=== PATIENT | female | born 1995 | race African-American/Black ===

== ENCOUNTER 2016-08-19 22:40 | Emergency (ER) | payer MEDICAID, OTHER ==
[~2016-08-19] VITALS: Ht 162.6 cm; Wt 61.0 kg
[2016-08-19 22:46] VITALS: BP 126/93; PULSE 81; RESP 16; TEMP 98.1; O2SAT 99
[2016-08-19] MEDS ORDERED: SODIUM CHLOR 0.9% 1000 ML INJ 1,000 ML IV ONE (23:30)
[2016-08-19] MEDS ORDERED: SODIUM CHLORIDE 0.9% FLUSH 10 ML FLUSH IVF PRN (23:30)
--- NOTE | 2016-08-19 23:32 | RADRPT ---
EXAM DATE/TIME: 08/19/2016 23:14 [place] COMPARISON: No previous studies available for comparison. INDICATIONS : Syncopal episode. MEDICAL HISTORY : None. SURGICAL HISTORY : None. ENCOUNTER: Initial ACUITY: 1 day PAIN SCORE: 0/10 LOCATION: Bilateral chest FINDINGS: A single view of the chest demonstrates the lungs to be symmetrically aerated without evidence of mas s, infiltrate or effusion. The cardiomediastinal contours are unremarkable. Osseous structures are intact. CONCLUSION: No acute disease. Poncho Oscar MD on August 19, 2016 at 23:31 Board Certified Radiologist. This report was verified electronically.
--- NOTE | 2016-08-19 23:45 | PD ---
HPI Chief Complaint: Psychiatric Symptoms Time Seen by Provider: 22:44 Travel History International Travel<30 days: No Contact w/Intl Traveler<30days: No Traveled to known affect area: No History of Present Illness HPI The patient is a 20 year old female who presents to the [facility] emergency department with a history of reportedly feeling depressed and experiencing suicidal ideations after " having a bad day". The patient denies having any prior history of depression. The patient reports that at approximate 1930 this evening she took Advil liquid gels. The amount she took approximated 4200 mg. The patient reports that she immediately regretted the action and made herself vomit by sticking her finger down her throat. She reports that there were pill capsules in the emesis. She reports having some nausea at this point. She denies having any other symptoms. The patient was placed under a Casey act prior to arrival. The patient reports that she is currently attending school at [employer]. She reports that her roommate called ambulance services. The patient denies any recent fevers, cough, congestion, neck pain, chest pain, shortness of breath, diarrhea, urinary symptoms, or neurologic symptoms. LMP: 2 days ago was onset of her menstrual cycle. PFSH Past Medical History Narrative Medical The patient's past medical history is reportedly none. Medical History: Denies Significant Hx Hx Anticoagulant Therapy: No Cardiovascular Problems: No Chemotherapy: No Cerebrovascular Accident: No Diabetes: No Respiratory: No Immunizations Current: Yes Tetanus Vaccination: Unknown Influenza Vaccination: No ?: Not LMP: NOW Past Surgical History Narrative Surgical The patient's past surgical history significant for an umbilical hernia repair in 1999. Abdominal Surgery: Yes (HERNIA REAPIR 1999) Hysterectomy: No Social History Alcohol Use: No Tobacco Use: No Substance Use: No Allergies-Medications (Allergen,Severity, Reaction): Coded Allergies: No Known Allergies (Unverified , 08/19/16) Reported Meds & Prescriptions Reported Meds & Active Scripts Active No Active Prescriptions or Reported Medications Review of Systems Except as stated in HPI: all other systems reviewed are Neg General / Constitutional: No: Fever Eyes: No: Visual changes HENT: No: Headaches Cardiovascular: No: Chest Pain or Discomfort Respiratory: No: Shortness of Breath Gastrointestinal: Positive: Nausea, Vomiting, Indigestion, No: Diarrhea, Abdominal Pain, Changes in Bowel Habits Genitourinary: No: Dysuria Musculoskeletal: No: Pain Skin: No Rash Neurologic: No: Weakness, Focal Abnormalities, Change in Mentation, Slurred Speech, Sensory Disturbance Psychiatric: Positive: Depression, Suicidal Ideations, Mood Disorder, No: Homicidal Ideation Endocrine: No: Polydipsia Hematologic/Lymphatic: No: Easy Bruising Physical Exam Narrative General: The patient is a well-developed well-nourished female in no acute distress. The patient has a flat affect on examination. Head and Neck exam: Head is normocephalic atraumatic. Eyes: EOMI, pupils are equal round and reactive to light. Nose: Midline septum with pink mucous membranes Mouth: Dentition unremarkable. Moist mucus membranes. Posterior oropharynx is not erythematous. No tonsillar hypertrophy. Uvula midline. Airway patent. Neck: No palpable lymphadenopathy. No nuchal rigidity. No thyromegaly. Cardiovascular: Regular rate and rhythm without murmurs, gallops, or rubs. Lungs: Clear to auscultation bilaterally. No wheezes, rhonchi, or rales. Abdomen: Soft, without tenderness to palpation in all 4 quadrants of the abdomen. No guarding, rebound, or rigidity. Normal bowel sounds are audible. No tenderness on palpation of McBurney's point Extremities: No clubbing, cyanosis, or edema. 2+ pulses in all 4 extremities. No calf tenderness on palpation. Back: No spinous process tenderness to palpation. No costovertebral angle tenderness to palpation. Neurologic Exam: Grossly nonfocal. Skin Exam: No rash noted. Intact skin that is warm and dry. Data Data Last Documented VS Vital Signs Date Time Temp Pulse Resp B/P Pulse Ox O2 Delivery O2 Flow Rate FiO2 08/20/16 05:00 72 16 91/61 100 Room Air 08/19/16 22:46 98.1 Orders Electrocardiogram (08/19/16 23:17) Beta Hcg (Quant/Titer) (08/19/16 23:17) Complete Blood Count With Diff (08/19/16 23:17) Comprehensive Metabolic Panel (08/19/16 23:17) Prothrombin Time / Inr (Pt) (08/19/16 23:17) Act Partial Throm Time (Ptt) (08/19/16 23:17) Urinalysis - C+S If Indicated (08/19/16 23:17) Chest, Single Ap (08/19/16 23:17) Blood Glucose (08/19/16 23:17) Iv Access Insert/Monitor (08/19/16 23:17) Ecg Monitoring (08/19/16 23:17) Oximetry (08/19/16 23:17) Sodium Chloride 0.9% Flush (Ns Flush) (08/19/16 23:30) Call Poison Control (08/19/16:17) Drug Screen, Random Urine (08/19/16:17) Alcohol (Ethanol) (08/19/16 23:17) Salicylates (Aspirin) (08/19/16 23:17) Tylenol (Acetaminophen) (08/19/16 23:17) Sodium Chlor 0.9% 1000 Ml Inj (Ns 1000 M (08/19/16 23:30) Comprehensive Metabolic Panel (08/20/16 05:00) Labs Laboratory Tests Test 08/19/16 08/20/16 08/20/16 23:00 00:35 05:05 White Blood Count 8.8 TH/MM3 Red Blood Count 4.57 MIL/MM3 Hemoglobin 12.4 GM/DL Hematocrit 38.0 % Mean Corpuscular Volume 83.1 FL Mean Corpuscular Hemoglobin 27.0 PG Mean Corpuscular Hemoglobin 32.6 % Concent Red Cell Distribution Width 13.4 % Platelet Count 430 TH/MM3 Mean Platelet Volume 7.9 FL Neutrophils (%) (Auto) 53.8 % Lymphocytes (%) (Auto) 35.3 % Monocytes (%) (Auto) 8.5 % Eosinophils (%) (Auto) 1.4 % Basophils (%) (Auto) 1.0 % Neutrophils # (Auto) 4.7 TH/MM3 Lymphocytes # (Auto) 3.1 TH/MM3 Monocytes # (Auto) 0.7 TH/MM3 Eosinophils # (Auto) 0.1 TH/MM3 Basophils # (Auto) 0.1 TH/MM3 CBC Comment DIFF FINAL Differential Comment Prothrombin Time 10.9 SEC Prothromb Time International 1.0 RATIO Ratio Activated Partial 27.3 SEC Thromboplast Time Sodium Level 140 MEQ/L 140 MEQ/L Potassium Level 3.8 MEQ/L 3.8 MEQ/L Chloride Level 103 MEQ/L 108 MEQ/L Carbon Dioxide Level 25.3 MEQ/L 24.9 MEQ/L Anion Gap 12 MEQ/L 7 MEQ/L Blood Urea Nitrogen 11 MG/DL 9 MG/DL Creatinine 0.81 MG/DL 0.67 MG/DL Estimat Glomerular Filtration 110 ML/MIN 137 ML/MIN Rate Random Glucose 77 MG/DL 77 MG/DL Calcium Level 8.7 MG/DL 8.3 MG/DL Total Bilirubin 0.3 MG/DL 0.4 MG/DL Aspartate Amino Transf 15 U/L 10 U/L (AST/SGOT) Alanine Aminotransferase 18 U/L 14 U/L (ALT/SGPT) Alkaline Phosphatase 51 U/L 44 U/L Total Protein 7.6 GM/DL 6.3 GM/DL Albumin 4.0 GM/DL 3.3 GM/DL Human Chorionic Gonadotropin, LESS THAN 1 Quant MIU/ML Salicylates Level LESS THAN 1.7 MG/DL Acetaminophen Level LESS THAN 2.0 MCG/ML Ethyl Alcohol Level LESS THAN 3 MG/DL Urine Color YELLOW Urine Turbidity HAZY Urine pH 6.0 Urine Specific [place] 1.014 Urine Protein NEG mg/dL Urine Glucose (UA) NEG mg/dL Urine Ketones NEG mg/dL Urine Occult Blood LARGE Urine Nitrite NEG Urine Bilirubin NEG Urine Urobilinogen LESS THAN 2.0 MG/DL Urine Leukocyte Esterase NEG Urine RBC 2 /hpf Urine WBC 2 /hpf Urine Squamous Epithelial 1 /hpf Cells Urine Bacteria RARE /hpf Urine Mucus FEW /lpf Microscopic Urinalysis Comment CULT NOT INDICATED Urine Opiates Screen NEG Urine Barbiturates Screen NEG Urine Amphetamines Screen NEG Urine Benzodiazepines Screen NEG Urine Cocaine Screen NEG Urine Cannabinoids Screen NEG MDM Medical Decision Making Medical Screen Exam Complete: Yes Emergency Medical Condition: Yes Medical Record Reviewed: Yes Differential Diagnosis Depression with suicidal ideations, suicide attempt, substance induced mood disorder Narrative Course During the course of the patients emergency department visit, the patients history, examination, and differential diagnosis were reviewed with the patient. The patient had IV access obtained and blood work sent for analysis. The patient was placed on a cardiac technician with oximetry and blood pressure monitoring. A psychiatric screen was ordered. The patient was provided normal saline 1 L IV fluid bolus. The patients laboratory studies were reviewed and remarkable for a CBC that shows a white count of 8.8, hemoglobin 12.4, platelets 4:30 with 8.5 monos, CMP was remarkable for an AST of 15, quantitative beta hCG is less than 1, PT PTT within normal limits. Urine drug screen is negative, salicylate less than 1.7, acetaminophen less than 2, alcohol less than 3, urinalysis is unremarkable. Poison control recommended a repeat CMP 6 hours from the initial CMP which would be 5 AM. The repeat CMP showed no acute changes. The patient has therefore been medically cleared for evaluation by the psychiatric screener under a Casey act. Radiology studies were reviewed and remarkable for a chest x-ray that shows no acute abnormality. The patient has been medically cleared for evaluation by the psychiatrist under a Casey act for a suicide attempt related to depression. Diagnosis Primary Impression: Suicide attempt by drug ingestion Qualified Code: T50.902A - Suicide attempt by drug ingestion, initial encounter Scripts No Active Prescriptions or Reported Meds Opal Ramírez MD Aug 19, 2016 23:45
[2016-08-19 23:51] LABS: AUTOMATED NEUTROPHIL # 4.7 TH/MM3 (1.8-7.7); BASOPHIL # 0.1 TH/MM3 (0-0.2); EOSINOPHIL # 0.1 TH/MM3 (0-0.4); EOSINOPHIL % 1.4 % (0.0-4.0); HEMO FLAGS DIFF FINAL; LYMPH % 35.3 % (9.0-44.0); LYMPHOCYTE # 3.1 TH/MM3 (1.0-4.8); MEAN CELL VOLUME 83.1 FL (80.0-100.0); MEAN CORPUSCULAR HGB CONC 32.6 % (32.0-36.0); MONO % 8.5 % (0.0-8.0); NEUT % 53.8 % (16.0-70.0); PLATELET COUNT 430 TH/MM3 (150-450); RED BLOOD COUNT 4.57 MIL/MM3 (4.00-5.30); RED CELL DISTRIBUTION WIDTH 13.4 % (11.6-17.2); WHITE BLOOD COUNT 8.8 TH/MM3 (4.0-11.0)
[2016-08-20] VITALS: BP 121/73; PULSE 75; RESP 16; O2SAT 99
[2016-08-20] LABS: APTT (PATIENT) 27.3 SEC (24.3-30.1); PROTHROMBIN TIME - PATIENT 10.9 SEC (9.8-11.6)
[2016-08-20 00:04] LABS: ALT (GPT) 18 U/L (9-42); ANION GAP 12 MEQ/L (5-15); AST (GOT) 15 U/L (16-38); BICARBONATE 25.3 MEQ/L (21.0-32.0); BLOOD UREA NITROGEN 11 MG/DL (7-18); CHLORIDE 103 MEQ/L (98-107); GLOMERULAR FILTRATION RATE 110 ML/MIN (>89); POTASSIUM 3.8 MEQ/L (3.5-5.1); SODIUM (NA) 140 MEQ/L (136-145)
[2016-08-20 00:08] LABS: ACETAMINOPHEN LESS THAN 2.0 MCG/ML (10.0-30.0); ALKALINE PHOSPHATASE 51 U/L (45-117); BETA HCG QUANT LESS THAN 1 MIU/ML (0-5); TOTAL BILIRUBIN ADULT 0.3 MG/DL (0.2-1.0)
[2016-08-20 00:52] LABS: AMPHETAMINE, URINE NEG (NEG); BARBITURATES, URINE NEG (NEG); COCAINE, URINE NEG (NEG)
[2016-08-20 00:54] LABS: BACTERIA, URINE RARE /hpf; BLOOD, URINE LARGE (NEG); COMMENT (UR) CULT NOT INDICATED; CULTURE IF INDICATED CULT NOT INDICATED; GLUCOSE,URINE NEG (NEG); KETONE, URINE NEG (NEG); MUCUS URINE FEW /lpf (OCC); NITRITE,URINE NEG (NEG); SQUAMOUS EPITHELIAL CELL URINE 1 /hpf (0-5); URINE COLOR YELLOW (YELLW/STRAW)
[2016-08-20 05:00] VITALS: BP 91/61; PULSE 72; RESP 16; O2SAT 100
[2016-08-20 05:45] LABS: ALKALINE PHOSPHATASE 44 U/L (45-117); ALT (GPT) 14 U/L (9-42); ANION GAP 7 MEQ/L (5-15); AST (GOT) 10 U/L (16-38); BICARBONATE 24.9 MEQ/L (21.0-32.0); BLOOD UREA NITROGEN 9 MG/DL (7-18); CHLORIDE 108 MEQ/L (98-107); GLOMERULAR FILTRATION RATE 137 ML/MIN (>89); POTASSIUM 3.8 MEQ/L (3.5-5.1); SODIUM (NA) 140 MEQ/L (136-145); TOTAL BILIRUBIN ADULT 0.4 MG/DL (0.2-1.0)
[2016-08-20 09:15] VITALS: BP 109/57; PULSE 115; RESP 16; O2SAT 100
--- NOTE | 2016-08-20 10:49 | PD ---
History of Present Illness Chief Complaint: Psychiatric Symptoms Time Seen by Provider: 10:30 Travel History International Travel<30 Days: No Contact w/Intl Traveler<30days: No Known affected area: No Legal Status Legal Status: Casey Act Casey Act Signed By: Gloria Morocho History of Present Illness: This is a 20-year-old female who is a student at [employer]. She was Casey acted after ingesting a number of packets of nonsteroidal anti- inflammatory medication. (Medical record reviewed.) The patient is now stating that she had a bad day yesterday and got into an argument with her friend Al. She indicates they both said things they should not have and she does not mean what she said. As a result of this argument and stressors in general, she took the medicine. At this time she is calm and pleasant and cooperative. She is planning to major in sociology but she does not know her career path. Still, she is forward thinking and planning for the future. She denies any suicidal ideation, plan or intention. She denies any homicidal ideation or psychotic symptoms. She is verbally colby for safety. Her parents live in [place] and she describes a supportive relationship with them. She states she will call them in the future if she is feeling too much stress. She regrets having ingested the nonsteroidal medication. PFSH Past Medical History Medical History: Denies Significant Hx Hx Anticoagulant Therapy: No Cardiovascular Problems: No Chemotherapy: No Cerebrovascular Accident: No Diabetes: No Respiratory: No Immunizations Current: Yes Tetanus Vaccination: Unknown Influenza Vaccination: No ?: Not LMP: NOW Past Surgical History Abdominal Surgery: Yes (HERNIA REAPIR 2000) Hysterectomy: No Psychiatric History Psychiatric History Hx Psychiatric Treatment: Denies History of Inpatient Treatment: No Guns or firearms in home: No Social History Hx Alcohol Use: No Hx Tobacco Use: No Hx Substance Use: No Hx of Substance Use Treatment: No Allergies-Medications (Allergen,Severity, Reaction): Coded Allergies: No Known Allergies (Unverified , 08/19/16) Reported Meds & Prescriptions Reported Meds & Active Scripts Active No Active Prescriptions or Reported Medications Review of Systems ROS Limitations: Clinical Condition Except as stated in HPI: all other systems reviewed are Neg Exam Exam Limitations: Clinical Condition Alert: Yes [place]: Person, Place, Date, Situation Mood: Calm Affect: Appropriate Speech: Clear, Logical Eye Contact: Normal Memory Intact: Immediate, Recent, Remote Insight/Judgement Adequate MDM Medical Decision Making Medical Record Reviewed: Yes Assessment/Plan Patient's Casey act is being lifted and she is being discharged home per her request. She is encouraged to seek counseling through [facility]. She is also encouraged to speak to her family regarding stressors in her life. At this time she no longer meets Casey act criteria or criteria for inpatient psychiatric hospitalization. Orders Electrocardiogram (08/19/16 23:) Beta Hcg (Quant/Titer) (08/19/16 23:17) Complete Blood Count With Diff (08/19/16 23:17) Comprehensive Metabolic Panel (08/19/16 23:17) Prothrombin Time / Inr (Pt) (08/19/16 23:17) Act Partial Throm Time (Ptt) (08/19/16:17) Urinalysis - C+S If Indicated (08/19/16 23:17) Chest, Single Ap (08/19/16 23:17) Blood Glucose (08/19/16 23:17) Iv Access Insert/Monitor (08/19/16 23:17) Ecg Monitoring (08/19/16 23:17) Oximetry (08/19/16 23:17) Sodium Chloride 0.9% Flush (Ns Flush) (08/19/16 23:30) Call Poison Control (08/19/16 23:17) Drug Screen, Random Urine (08/19/16 23:17) Alcohol (Ethanol) (08/19/16 23:17) Salicylates (Aspirin) (08/19/16 23:17) Tylenol (Acetaminophen) (08/19/16 23:17) Sodium Chlor 0.9% 1000 Ml Inj (Ns 1000 M (08/19/16 23:30) Comprehensive Metabolic Panel (08/20/16 05:00) Psych Screen (08/20/16 06:42) Results Vital Signs Date Time Temp Pulse Resp B/P Pulse Ox O2 Delivery O2 Flow Rate FiO2 08/20/16 09:15 115 16 109/57 100 Room Air 08/20/16 05:00 72 16 91/61 100 Room Air 08/20/16 00:00 75 16 121/73 99 Room Air 08/19/16 22:46 98.1 81 16 126/93 99 Laboratory Tests Test 08/19/16 08/20/16 08/20/16 23:00 00:35 05:05 White Blood Count 8.8 Red Blood Count 4.57 Hemoglobin 12.4 Hematocrit 38.0 Mean Corpuscular Volume 83.1 Mean Corpuscular Hemoglobin 27.0 Mean Corpuscular Hemoglobin 32.6 Concent Red Cell Distribution Width 13.4 Platelet Count 430 Mean Platelet Volume 7.9 Neutrophils (%) (Auto) 53.8 Lymphocytes (%) (Auto) 35.3 Monocytes (%) (Auto) 8.5 Eosinophils (%) (Auto) 1.4 Basophils (%) (Auto) 1.0 Neutrophils # (Auto) 4.7 Lymphocytes # (Auto) 3.1 Monocytes # (Auto) 0.7 Eosinophils # (Auto) 0.1 Basophils # (Auto) 0.1 CBC Comment DIFF FINAL Differential Comment Prothrombin Time 10.9 Prothromb Time International 1.0 Ratio Activated Partial 27.3 Thromboplast Time Sodium Level 140 140 Potassium Level 3.8 3.8 Chloride Level 103 108 Carbon Dioxide Level 25.3 24.9 Anion Gap 12 7 Blood Urea Nitrogen 11 9 Creatinine 0.81 0.67 Estimat Glomerular Filtration 110 137 Rate Random Glucose 77 77 Calcium Level 8.7 8.3 Total Bilirubin 0.3 0.4 Aspartate Amino Transf 15 10 (AST/SGOT) Alanine Aminotransferase 18 14 (ALT/SGPT) Alkaline Phosphatase 51 44 Total Protein 7.6 6.3 Albumin 4.0 3.3 Human Chorionic Gonadotropin, LESS THAN 1 Quant Salicylates Level LESS THAN 1.7 Acetaminophen Level LESS THAN 2.0 Ethyl Alcohol Level LESS THAN 3 Urine Color YELLOW Urine Turbidity HAZY Urine pH 6.0 Urine Specific [place] 1.014 Urine Protein NEG Urine Glucose (UA) NEG Urine Ketones NEG Urine Occult Blood LARGE Urine Nitrite NEG Urine Bilirubin NEG Urine Urobilinogen LESS THAN 2.0 Urine Leukocyte Esterase NEG Urine RBC 2 Urine WBC 2 Urine Squamous Epithelial 1 Cells Urine Bacteria RARE Urine Mucus FEW Microscopic Urinalysis Comment CULT NOT INDICATED Urine Opiates Screen NEG Urine Barbiturates Screen NEG Urine Amphetamines Screen NEG Urine Benzodiazepines Screen NEG Urine Cocaine Screen NEG Urine Cannabinoids Screen NEG Diagnosis Primary Impression: Suicide attempt by drug ingestion Additional Impression: Adjustment disorder with mixed disturbance of emotions and conduct Prescriptions No Active Prescriptions or Reported Meds Problem Qualifiers Primary Impression: Suicide attempt by drug ingestion Qualified Code: T50.902A - Suicide attempt by drug ingestion, initial encounter Farhat Jordan MD Aug 20, 2016 10:49
--- NOTE | 2016-08-20 14:13 | EKG ---
Date Performed: 08/20/2016 Time Performed: 00:31:59 PTAGE: 20 years EKG: Sinus rhythm Since previous tracing, no significant change noted NORMAL ECG PREVIOUS TRACING : 02/21/2015 19.51 DOCTOR: Dina Lizama Interpretating Date/Time 08/20/2016 14:12:29
== END 2016-08-20 15:22 | disposition home or self-care (01) ==
LOC: NEPE 22:40 → NEPJ 08-20 15:22
DX: T39.312A Poisoning by propionic acid derivatives, intentional self-harm, initial encounter (principal); R11.0 Nausea; F43.20 Adjustment disorder, unspecified; R55 Syncope and collapse
CPT/HCPCS: 71010; 80053; 80307; 81001; 84702; 85025; 85610; 85730; 93005; 99284; J7030